=== PATIENT | female | born 1955 | race Caucasian/White ===

== ENCOUNTER → 2019-01-04 | Outpatient (CLI) | payer OTHER ==
--- NOTE | 2019-01-04 14:19 | XR ---
Bilateral knees HISTORY: Knee pain Four views of each knee are submitted on a total of 8 images Marginal spurring is present tricompartmentally. Alignment and bone mineralization are maintained. Th ere may be small joint effusion on the right. No fracture or dislocation. IMPRESSION: Osteoarthritis bilaterally.
== END ==
LOC: RADXRMAIN 08:07
PROVIDERS: ATTEND Family Medicine
DX: M17.0 Bilateral primary osteoarthritis of knee (principal)

== ENCOUNTER → 2019-03-21 | Outpatient (CLI) | payer OTHER ==
--- NOTE | 2019-03-21 13:51 | XR ---
EXAMINATION TYPE: XR foot complete LT DATE OF EXAM: 03/21/2019 COMPARISON: NONE HISTORY: Pain TECHNIQUE: Three views are submitted. FINDINGS: The osseous structures are intact. There is no acute fracture or dislocation. Arthropathy of the f irst MTP joint. Calcaneal spurs are noted. Hypertrophic change of the tarsal metatarsal junction.. IMPRESSION: 1. Arthropathy. 2. Calcaneal spurs.
--- NOTE | 2019-03-21 13:52 | XR ---
EXAMINATION TYPE: XR wrist complete LT DATE OF EXAM: 03/21/2019 COMPARISON: NONE HISTORY: Pain TECHNIQUE: Four views submitted. FINDINGS: The osseous structures are intact. The joint spaces are preserved and there is no acute fracture or dislocation. IMPRESSION: 1. No definite acute fracture or dislocation if symptoms persist, follow-up study in 7 to 10 days wo uld be suggested
--- NOTE | 2019-03-21 13:54 | XR ---
EXAMINATION TYPE: XR knee complete bilateral DATE OF EXAM: 03/21/2019 COMPARISON: 01/04/2019 HISTORY: Pain TECHNIQUE: Four views are submitted. FINDINGS: Bilateral suprapatellar bursal fluid collection. Hypertrophic change and narrowing of the tricompartm ent spaces are noted with the most marked findings involving the patellofemoral joint.. Osseous stru ctures are intact. No acute fracture seen. Findings similar to the prior exam. IMPRESSION: 1. Moderate to severe arthritic change involving the patellofemoral joint bilaterally. 2. Moderate arthropathy of the knee joint bilaterally.
== END | disposition home or self-care (01) ==
LOC: RADUSMAIN 13:07
PROVIDERS: ATTEND Family Medicine
DX: M17.0 Bilateral primary osteoarthritis of knee (principal); M19.072 Primary osteoarthritis, left ankle and foot; M77.32 Calcaneal spur, left foot; M25.532 Pain in left wrist

== ENCOUNTER → 2019-05-10 | Outpatient (CLI) | payer OTHER ==
--- NOTE | 2019-05-10 12:41 | BD ---
EXAMINATION TYPE: Axial Bone Density DATE OF EXAM: 05/10/2019 COMPARISON: no prior CLINICAL HISTORY: osteoporosis Height: 5'4 Weight: 213 FRAX RISK QUESTIONS RISK FACTORS HISTORY OF: Active: n Postmenopausal woman: y MEDICATIONS: Additional Medications: blood pressure, type 2 diabetes cholesterol, sleep aid Additional History: EXAM MEASUREMENTS: Bone mineral densitometry was performed using the [employer] System. Bone mineral density as measured about the Lumbar spine is: ----- L1-L4(G/cm2): 1.240 T Score Values are as follows: ----- L2: .0.0 ----- L3: 1.3 ----- L4: 0.1 ----- L1-L4:0.5 Bone mineral density about the R hip (g/cm2): 1.073 Bone mineral density about the L hip (g/cm2): 1.083 T Score values are as follows: -----R Neck: 0.3 -----L Neck: 0.3 -----R Total: -0.2 -----L Total: 0.5 IMPRESSION: Normal (Values between +1 and -1 indicate normal bone mass). Consider repeating this study in 5 year s or sooner if there is some new clinical indication. NOTE: T-SCORE=SD OF THE YOUNG ADULT MEAN.
== END | disposition home or self-care (01) ==
LOC: RADBDWWP 07:56
PROVIDERS: ATTEND Family Medicine
DX: M81.0 Age-related osteoporosis without current pathological fracture (principal)
CPT/HCPCS: 77080

== ENCOUNTER → 2019-08-01 | Outpatient (CLI) | payer MEDICARE ==
--- NOTE | 2019-08-01 14:55 | XR ---
Bilateral clavicles HISTORY: Pain 2 views of each clavicle are submitted on a total 4 images Arthropathy present at the acromion clavicular joints. Distal acromions are downturned. No fracture o r dislocation. Lung apices as visualized are normal. IMPRESSION: Acromioclavicular joint arthropathy, correlate for impingement in the shoulders.
== END | disposition home or self-care (01) ==
LOC: RADXRMAIN 14:26
PROVIDERS: ATTEND Family Medicine
DX: M13.812 Other specified arthritis, left shoulder (principal); M13.811 Other specified arthritis, right shoulder